=== PATIENT | male | born 1975 | race Two or more races ===

== ENCOUNTER 2024-02-14 07:19 | Emergency (ER) | payer OTHER ==
[~2024-02-14] VITALS: Ht 165.1 cm; Wt 90.7 kg
[~2024-02-14 07:19] MED LIST: AMPICILLIN TRI500 MG PO; PEPCID40 MG PO
[2024-02-14] MEDS ORDERED: ROSUVASTATIN CA20 MG PO (07:40)
[2024-02-14] MEDS ORDERED: ECOTRIN81 MG (07:40)
[2024-02-14] MEDS ORDERED: TOPROL XL50 M1 (07:40)
[2024-02-14] MEDS ORDERED: BACTRIM DS TAB1 EACH PO (08:44)
[2024-02-14] MEDS ORDERED: DICLOFENAC SODI75 MG PO (08:44)
[2024-02-14] MEDS ORDERED: KETOROLAC TROMETHAMINE 60 MG VIAL IM ONE (08:45)
[2024-02-14] MEDS ORDERED: CEFTRIAXONE SODIUM 1,000 MG VIAL IM ONE (08:45)
[2024-02-14 09:28] VITALS: BP 126/81; O2SAT 100
== END 2024-02-14 09:29 | disposition home or self-care (01) ==
LOC: ER 07:21
DX: L02.01 Cutaneous abscess of face (principal); I10 Essential (primary) hypertension